=== PATIENT | male | born 1960 | race Caucasian/White ===

== ENCOUNTER 2018-07-09 13:56 | Emergency (ER) | payer OTHER, SELFPAY ==
[2018-07-09 13:58] VITALS: BP 156/90; PULSE 82; RESP 18; O2SAT 99; BMI 24.3
--- NOTE | 2018-07-09 13:59 | PC.NURSE ---
Pt gives verbal consent for medical information to be given to brother who is in the waiting room.
--- NOTE | 2018-07-09 14:02 | DI.RAD.S_ITS ---
PROCEDURE: XR FINGER RT MIN 2V INDICATIONS: injury TECHNIQUE: AP hand, 2 views of the right fifth finger(s) acquired. COMPARISON: None. FINDINGS: Bones: The second distal phalange is partially amputated which appears chronic. Displaced and angulated fracture of the fifth proximal phalange. Accessory ossicle noted adjacent to the ulnar styloid process. Soft tissues: No suspicious soft tissue calcifications. IMPRESSION: Fifth proximal phalange fracture. Dictated by: Zoraida Santiago MD, PhD on 07/09/2018 at 14:31 Approved by: Zoraida Santiago MD, PhD on 07/09/2018 at 14:36
--- NOTE | 2018-07-09 14:16 | ED.UPPEXIN ---
HPI - Extremity Injury (Upper) <KANDIS Caputo - Last Filed: 07/09/18 15:26> General Chief Complaint: Extremity Injury, Upper Stated Complaint: RIGHT HAND CRUSH INJURY Time Seen by Provider: 07/09/18 14:16 Source: patient Mode of arrival: ambulatory Limitations: no limitations History of Present Illness HPI narrative: at work, working with logging equipment and R dudley finger got caught by log and got smashed, says he knows his finger is broken, R handed, tdap utd, denies any other injury/issue, no pain unless he moves it, happened just a few minutes ago complaint: injury to: right Onset (ago): minute(s) Other Extremity Injury: Right: fingers Other injuries: none Handedness: right Place: work Severity: mild Relieving factors: rest Exacerbating factors: movement of extremity Context: crush Associated symptoms: denies other symptoms Treatments prior to arrival: cold therapy, bandage and splint Related Data Previous Rx's Medication Instructions Recorded hydrocodone-acetaminophen [Delta] 1 tab PO Q6H PRN #15 tab 07/09/18 Allergies Allergy/AdvReac Type Severity Reaction Status Date / Time No Known Drug Allergies Allergy Verified 07/09/18 13:58 Review of Systems <KANDIS Caputo - Last Filed: 07/09/18 15:26> Review of Systems All systems reviewed & are unremarkable except as noted in HPI and below Constitutional Reports as per HPI and Reports system reviewed and no additional complaints, except as docu Musculoskeletal Reports as per HPI, Denies abnormal gait, Denies deformity, Reports limited range of motion, Denies muscle weakness and Denies numbness Integumentary/Breasts Reports as per HPI, Denies unusual bruising and Reports wounds (cut to finger ) Neurologic Denies abnormal gait and Denies numbness Exam <KANDIS Caputo - Last Filed: 07/09/18 15:26> Initial Vital Signs Initial Vital Signs: Vital Signs Pulse Rate 82 07/09/18 13:58 Respiratory Rate 18 07/09/18 13:58 Blood Pressure 156/90 H 07/09/18 13:58 Pulse Oximetry 99 07/09/18 13:58 Const General: cooperative, healthy appearing, comfortable and well developed Nutritional Appearance: average body habitus Orientation: alert, awake and oriented x3 Resp Effort & Inspection: normal respiratory effort and able to speak in complete sentences Back/Spine/Pelvis Cervical Spine: cervical ROM normal Thoracic/Lumbar Spine: thoraco-lumbar ROM normal Skin General: no rashes or lesions noted, elasticity normal, turgor normal and warm Wounds: wounds noted (superficial 1/2 cm irregular linear lac to base of back side of R 5th digit, no active bleeding and no closure needed) Neuro General: alert, awake, oriented x3, gait normal and moves all extremities Cranial Nerves: CN's II-XI intact bilaterally Cognition: normal cognition Speech: speech normal Gait: normal gait Motor: muscle tone normal throughout Sensory Exam: no sensory deficits noted Extrem General: normal to inspection and full ROM Right upper extremity: hand (R 5th digit, swollen, contusion, decreased rom secondary to pain, and proximal phalange has mild deformity to it and can feel the bone move when palpated) Left upper extremity: normal to inspection and full ROM Right lower extremity: full ROM Left lower extremity: full ROM Psych Appearance: grossly normal and well kempt Mental Status: mental status grossly normal Speech and Movement: speech and movement normal Mood: congruent mood Affect: normal affect Attitude: cooperative Thought Process: normal Thought Content: normal Judgment: judgment good <Yani Kenyon MD - Last Filed: 07/09/18 20:17> Initial Vital Signs Initial Vital Signs: Vital Signs Pulse Rate 82 07/09/18 13:58 Respiratory Rate 18 07/09/18 13:58 Blood Pressure 156/90 H 07/09/18 13:58 Pulse Oximetry 99 07/09/18 13:58 Course <KANDIS Caputo - Last Filed: 07/09/18 15:26> Course Narrative: xrays shown and tx plan discussed, pt encouraged to f/u with hand ortho and discussed possibility of screw or small surgery being done if bone was too displaced for splint/cast Orders Ordered: ED Orders 07/09/18 14:02 XR finger RT min 2V Stat Vital Signs - 8 hr 07/09/18 13:58 Pulse Rate 82 Respiratory Rate 18 Blood Pressure 156/90 H Pulse Oximetry 99 <Yani Kenyon MD - Last Filed: 07/09/18 20:17> Orders Ordered: ED Orders 07/09/18 14:02 XR finger RT min 2V Stat Vital Signs - 8 hr 07/09/18 13:58 Pulse Rate 82 Respiratory Rate 18 Blood Pressure 156/90 H Pulse Oximetry 99 MDM - Extremity Injury (Upper) <KANDIS Caputo - Last Filed: 07/09/18 15:26> Differential Diagnosis Differential diagnosis: Likely dislocation of finger and other (finger contusion, lac, crush injury, fx, nail injury) Imaging Data hand xray: Attestation: I personally reviewed and interpreted this imaging study as follows: My impression: 5th proximal phalange midshaft fx, partially displaced Radiologist's impression: Discharge Plan Departure Patient Disposition: Home Clinical Impression: Fracture of phalanx of digit of hand, Finger laceration, Crush injury to finger Discharge Date/Time: 07/09/18 15:12 Interventions: ED Discharge Assessment Last Done: 07/09/18 15:12 Instructions: DI for Finger Fracture Activity Restrictions/Additional Instructions: over the counter motrin or aleve to help with pain and swelling as discussed Dr Austin Cordero Hand [facility] [place] [phone] Prescriptions: New hydrocodone-acetaminophen [Delta] 5-325 mg tablet 1 tab PO Q6H PRN (Reason: Pain (Scale Score 7-10)) Qty: 15 RF: 0 Referrals: Princess Bojorquez MD [Physician] - Darvin Sauer MD [Non-Staff] - Go Costa MD [Physician] -
--- NOTE | 2018-07-09 14:30 | PC.NURSE ---
occured at work, right finger crush injury between johnson, occured this morning at 10am. arrived with finger splint. range of motion limited due to pain. distal cms intact
--- NOTE | 2018-11-22 16:45 | PC.NURSE ---
edit note, place of injury home.
== END 2018-07-09 15:12 | disposition home or self-care (01) ==
LOC: ED 14:52
PROVIDERS: Emergency Provider Nurse Practitioner
DX: S62.616A Displaced fracture of proximal phalanx of right little finger, initial encounter for closed fracture (principal); W23.0XXA Caught, crushed, jammed, or pinched between moving objects, initial encounter
CPT/HCPCS: 29130; 73140; 99283

== ENCOUNTER → 2021-09-13 10:00 | Outpatient (CLI) | payer OTHER, SELFPAY ==
[2021-09-13 19:17] LABS: Add Manual Diff / Slide Review NO; Basophils Absolute Auto 0 /uL (0-100); Basophils Percent Auto 0.4 % (0-2); Eosinophils Absolute Auto 100 /uL (0-450); Eosinophils Percent Auto 3.6 % (2-4); Hematocrit 44.3 % (41-53); Hemoglobin 14.9 g/dL (13.5-17.5); Lymphocytes Absolute Auto 1200 /uL (1100-4500); Lymphocytes Percent Auto 29.6 % (25-40); Mean Corpuscular HGB Conc 33.5 % (30-36); Mean Corpuscular Hemoglobin 31.9 PG (26-34); Monocytes Absolute Auto 800 /uL (0-900); Monocytes Percent Auto 19.9 % (3-14); Neutrophils Absolute Auto 1800 /uL (1500-7000); Neutrophils Percent Auto 46.5 % (50-75); Platelet Count 200 X10^3/uL (150-400); Red Blood Cell Count 4.66 X10^6/uL (4.5-5.9); Red Cell Distribution Width 13.8 % (11.6-14.8); White Blood Cell Count 3.9 X10^3/uL (4.5-11.0)
[2021-09-13 19:39] LABS: Alanine Aminotransferase 34 IU/L (<50); Albumin 4.1 g/dL (3.5-5.0); Albumin Globulin Ratio 1.3 (1.0-2.8); Alkaline Phosphatase 66 U/L (38-126); Amylase 56 U/L (30-110); Aspartate Aminotransferase 36 IU/L (17-59); BUN Creatinine Ratio 15.4 (6-22); Blood Urea Nitrogen 12 mg/dL (9-20); C-Reactive Protein Quant 0.5 mg/dL (<1.0); Calcium 8.9 mg/dL (8.4-10.2); Carbon Dioxide 30 mmol/L (22-32); Chloride 105 mmol/L (98-107); Estimated Glomerular Filt Rate > 60.0 mL/min (>60); Globulin 3.1 g/dL (1.7-4.1); Glucose 111 mg/dL (80-110); HEMOLYSIS < 15 (0-50); Lipase 97 U/L (23-300); Potassium 4.3 mmol/L (3.4-5.1); Sodium 140 mmol/L (137-145); Total Protein 7.2 g/dL (6.3-8.2)
[2021-09-13 19:42] LABS: High Sensitivity CRP - Cardiac 3.1 mg/L (1.0-3.0)
[2021-09-13 19:54] LABS: Vitamin D 25 Hydroxy (D3) 71.2 ng/mL (30.0-100.0)
[2021-09-13 20:09] LABS: Cortisol AM (Before 10AM) 10.7 ug/dL (4.46-22.7)
[2021-09-13 20:29] LABS: D Dimer 339 ng/mL (<230)
[2021-09-15 02:10] LABS: Homocysteine 7.6 umol/L (0.0-17.2)
[2021-09-16 21:10] LABS: Estrogen 132 pg/mL (56-213)
[2021-09-23 19:40] LABS: Percent Free Testosterone 2.18 % (1.50-4.20); Testosterone Total 435.7 ng/dL (264.0-916.0)
[2021-09-25 10:48] LABS: SARS-CoV-2 Antibody Titer <0.8
[2021-09-25 10:59] LABS: SARS CoV19 IgG <13.0
== END ==
PROVIDERS: PCP Family Medicine; Visit Provider Naturopath
DX: R79.89 Other specified abnormal findings of blood chemistry (principal); R53.83 Other fatigue; R19.7 Diarrhea, unspecified; D64.9 Anemia, unspecified; B82.9 Intestinal parasitism, unspecified; B02.9 Zoster without complications; M79.10 Myalgia, unspecified site; E07.89 Other specified disorders of thyroid; T78.40XD Allergy, unspecified, subsequent encounter; E58 Dietary calcium deficiency; M79.89 Other specified soft tissue disorders
CPT/HCPCS: 80053; 82150; 82306; 82378; 82533; 82672; 83090; 83690; 84402; 84403; 85025; 85379; 86140; 86769

== ENCOUNTER → 2022-04-15 07:23 | Outpatient (CLI) | payer OTHER, SELFPAY ==
[2022-04-15 21:13] LABS: COVID19 - ORCAS (NP or Nasal) Negative (Negative)
== END ==
PROVIDERS: PCP Family Medicine; Visit Provider Family Medicine
DX: Z01.812 Encounter for preprocedural laboratory examination (principal); Z20.822 Contact with and (suspected) exposure to COVID-19
CPT/HCPCS: U0003

== ENCOUNTER → 2022-12-12 06:52 | Outpatient (CLI) | payer OTHER, SELFPAY ==
--- NOTE | 2022-12-12 06:53 | DI.ECHO.S_ITS ---
[facility]---------+ [facility] +---------+ : : [address] [place] : : : : [id number] : : : : Phone: [phone]---------+ Echocardiogram Report + + :Name: ISAIAS MANE Study Date: 12/12/2022 Height: 76 in : :[facility] ReadingLocation: Weight: 200 lb : : Gender: Male BSA: 2.2 m2 : :: 1960 Age: 62 yrs BP: 157/82 mmHg: :Reason For Study: THORACIC AORTIC ECTASIA HR: 70 : :Ordering Physician: JUANI, : :MOHINDER Performed By: ROZINA PHILIPPE : :Referring: MOHINDER LEBLANC : + + Interpretation Summary 1) Normal left ventricular size, wall motion, and systolic function (EF 55- 60%). 2) Normal right ventricular size and function. 3) No significant valvular abnormalities. 4) The aortic root is moderately dilated at 4.2cm. 5) Compared to the Echo done 12/13/2021, no significant change. Procedure: A two-dimensional transthoracic echocardiogram with color flow and Doppler was performed. The study quality was technically adequate. Comparison is made with the echocardiogram of 12/13/2021. The patient had frequent PVCs during the exam. Left Ventricle: The left ventricle appears normal in size, wall thickness, and systolic function without any focal wall motion abnormalities. Left ventricular wall thickness is mildly increased. Left ventricular systolic function is normal. The ejection fraction is estimated to be 55-60%. Right Ventricle: The right ventricle is normal in size and function. Atria: Both atria are normal in size. There is no Doppler evidence for an interatrial shunt. Mitral Valve: The mitral valve is normal in structure and function. There is trace mitral regurgitation. Aortic Valve: The aortic valve opens well. The aortic valve is trileaflet. There is no aortic valve stenosis. No aortic regurgitation is present. Tricuspid Valve: The tricuspid valve is normal in structure and function. There is mild tricuspid regurgitation. The right ventricular systolic pressure is estimated to be at least 26 mmHg based on an estimated right atrial pressure of 3 mm Hg. Pulmonic Valve: The pulmonic valve is normal in structure and function. There is a trace or physiologic amount of pulmonic regurgitation. Great Vessels: The aortic root is mildly dilated. This is unchanged compared to the previous study. The ascending aorta is at the upper limits of normal in size. The IVC is of normal diameter and collapses greater than 50% with a sniff. This suggests a low right atrial pressure of 3 mm Hg. Pericardium/ Pleura There is no pericardial effusion. There is no pleural effusion. MMode/2D Measurements & Calculations LVIDd: 5.1 cm LVOT diam: 2.0 cm LVIDs: 2.8 cm Ao root diam: 4.2 cm FS: 45.1 % asc Aorta Diam: 3.7 cm IVSd: 1.1 cm LVPWd: 1.0 cm LV peterson. diameter/BSA (cm/m^2): 2.3 LV sys. diameter/BSA (cm/m^2): 1.3 LA A2 area: 22.9 cm2 RA long axis: 4.8 cm LA A4 area: 14.9 cm2 LA length (vol): 5.6 cm LA vol: 51.8 ml LA vol index: 23.4 ml/m2 LVLs ap4: 7.3 cm LVLd ap2: 8.9 cm LVLs ap2: 7.3 cm TAPSE_phl: 2.4 cm Doppler Measurements & Calculations Ao V2 max: 168.0 cm/sec LVOT Max Neo: 171.0 cm/sec Ao V2 mean: 106.0 cm/sec LV V1 max P.7 mmHg Ao max P.3 mmHg LV V1 VTI: 33.2 cm Ao mean P.0 mmHg CRISPIN(I,D): 3.2 cm2 Ao V2 VTI: 32.3 cm CRISPIN(V,D): 3.2 cm2 sev ratio: 1.0 CRISPIN indexed to BSA (cm^2/m^2): 1.5 MV E max neo: 58.3 cm/sec TR max neo: 242.0 cm/sec MV A max neo: 69.0 cm/sec TR max P.4 mmHg MV E/A: 0.84 PA V2 max: 84.5 cm/sec Med Peak E' Neo: 6.6 cm/sec PA V2 mean: 64.1 cm/sec E/E' med: 8.9 PA mean P.0 mmHg Lat Peak E' Neo: 12.7 cm/sec PA pr(Accel): 1.1 mmHg E/E' lat: 4.6 E/e' average: 6.7 MV dec time: 0.27 sec SV(LVOT): 104.3 ml AV VR_phl: 0.98 CRISPIN(VTI)/BSA_phl: 1.4 MV P1/2t-pr_phl: 79.0 msec Reading Physician:07:41 PM
== END ==
PROVIDERS: PCP Family Medicine; Referring Provider Internal Medicine Cardiovascular Disease; Visit Provider Internal Medicine Cardiovascular Disease
DX: I07.1 Rheumatic tricuspid insufficiency (principal); I77.810 Thoracic aortic ectasia
CPT/HCPCS: 93306

== ENCOUNTER → 2024-04-13 09:41 | Outpatient (CLI) | payer OTHER, SELFPAY ==
--- NOTE | 2024-04-13 09:42 | DI.ECHO.S_ITS ---
[facility] +---------+ Hospital : : [address] : : [place] : : [id number] : : Phone: [phone] Echocardiogram Report + + :Name: ISAIAS MANE Study Date: 04/13/2024 Height: 76 in : :[facility] ReadingLocation: Weight: 190 lb : : Gender: Male BSA: 2.2 m2 : :: 1960 Age: 63 yrs BP: 142/86 mmHg: :Reason For Study: ATRIAL FIBRILLATION : :Ordering Physician: LEDA AGRAWAL Performed By: Asmita Piña : :Referring: LEDA AGRWAAL : + + Interpretation Summary 1. Normal LV contractility with EF > 55% and no segmental WMA. Impaired relaxation. No LVH. 2. Normal RV contractility. 3. Mild RV enlargement. All other chambers are of normal size. 4. Mild mitral regurgitation. 5. No obvious intracardiac shunts. 6. No obvious intracardiac masses/thrombi. 7. No hemodyamically significant pericardial effusion. 8. Mildly enlarged ascending thoracic aorta without dissection. Conclusion: Normal biventricular systolic function with isolated RV enlargement. Procedure: A two-dimensional transthoracic echocardiogram with color flow and Doppler was performed. The study quality was technically adequate. Comparison is made with the echocardiogram of 12/12/2022. The patient had occasional PVCs during the exam. The patient was in sinus rhythm with heart rates between 54-64 bpm during the exam. Left Ventricle: The left ventricle is normal in size and wall thickness. The ejection fraction is estimated to be 55-60%. Right Ventricle: The right ventricle is mildly dilated. The right ventricular systolic function is normal. Atria: The left atrial size is normal. Right atrial size is normal. There is no Doppler evidence for an interatrial shunt. Mitral Valve: The mitral valve is normal in structure and function. There is mild mitral regurgitation. Aortic Valve: The aortic valve is trileaflet. The aortic valve opens well. There is no aortic valve stenosis. There is trace aortic regurgitation. Tricuspid Valve: The tricuspid valve is normal in structure and function. There is trace tricuspid regurgitation. The right ventricular systolic pressure is estimated to be at least 22 mmHg based on an estimated right atrial pressure of 3 mm Hg. Pulmonic Valve: The pulmonic valve leaflets are thin and pliable; valve motion is normal. There is trace pulmonic regurgitation. Great Vessels: The aortic root is normal size. The ascending aorta is mildly enlarged. The IVC is of normal diameter and collapses greater than 50% with a sniff. This suggests a low right atrial pressure of 3 mm Hg. Pericardium/ Pleura There is no pericardial effusion. There is no pleural effusion. MMode/2D Measurements & Calculations LVIDd: 5.2 cm LVOT diam: 2.2 cm LVIDs: 3.3 cm Ao root diam: 4.4 cm FS: 36.1 % asc Aorta Diam: 4.1 cm IVSd: 1.1 cm LVPWd: 0.89 cm LV peterson. diameter/BSA (cm/m^2): 2.4 LV sys. diameter/BSA (cm/m^2): 1.5 LA A2 area: 16.9 cm2 RA long axis: 4.6 cm LA A4 area: 13.2 cm2 RA area: 13.8 cm2 LA length (vol): 4.4 cm RA vol: 35.5 ml LA vol: 42.6 ml RA : 16.4 ml/m2 LA vol index: 19.7 ml/m2 IVC diam: 1.9 cm RVD1 (basal): 4.4 cm RVD2 (mid): 3.4 cm TAPSE: 2.1 cm Doppler Measurements & Calculations Ao V2 max: 110.8 cm/sec LVOT Max Neo: 85.7 cm/sec Ao V2 mean: 81.3 cm/sec LV V1 max P.9 mmHg Ao max P.9 mmHg LV V1 VTI: 21.0 cm Ao mean P.9 mmHg CRISPIN(I,D): 3.1 cm2 Ao V2 VTI: 25.7 cm CRISPIN(V,D): 3.0 cm2 sev ratio: 0.82 CRISPIN indexed to BSA (cm^2/m^2): 1.4 MV E max neo: 59.6 cm/sec TR max neo: 216.6 cm/sec MV A max neo: 65.4 cm/sec TR max P.8 mmHg MV E/A: 0.91 PA V2 max: 109.1 cm/sec Med Peak E' Neo: 6.5 cm/sec PA V2 mean: 74.1 cm/sec E/E' med: 9.2 PA mean P.5 mmHg Lat Peak E' Neo: 12.6 cm/sec PA pr(Accel): 34.5 mmHg E/E' lat: 4.8 E/e' average: 7.0 MV dec time: 0.29 sec SVLVOT): 80.6 ml Reading Physician:
== END ==
PROVIDERS: PCP Family Medicine; Referring Provider Internal Medicine; Visit Provider Internal Medicine
DX: I34.0 Nonrheumatic mitral (valve) insufficiency (principal); I48.0 Paroxysmal atrial fibrillation; I77.89 Other specified disorders of arteries and arterioles
CPT/HCPCS: 93306